=== PATIENT | male | born 1995 | race Caucasian/White ===

== ENCOUNTER 2016-04-21 16:28 | Emergency (ER) | payer BC, OTHER ==
[~2016-04-21] VITALS: Ht 182.9 cm; Wt 97.7 kg
[2016-04-21 16:33] VITALS: TEMP 99
[2016-04-21 17:22] LABS: HEMATOCRIT 48.6 % (36.0-47.0); HEMOGLOBIN 16.7 g/dl (12.5-16.1); MEAN CELL VOLUME 92 fl (80.0-95.0); MEAN CORPUSCULAR HEMOGLOBIN 32 pg (26.0-32.0); MEAN CORPUSCULAR HGB CONC 34 g/dl (33.0-37.0); PLATELET COUNT 276 K/mm3 (130-400); RED BLOOD COUNT 5.31 M/mm3 (4.20-5.60); REDCELL DISTRIBUTION WIDTH-CV 12.4 % (11.5-14.5); WHITE BLOOD COUNT 18.4 K/mm3 (4.8-10.8)
[2016-04-21 17:39] LABS: ADJUSTED CALCIUM 9.7 mg/dL (8.4-10.2); ALBUMIN 5.1 gm/dL (3.5-5.0); BILIRUBIN,TOTAL 1.6 mg/dL (0.0-1.0); CALCIUM 10.6 mg/dL (8.4-10.2); CREATININE, serum 1.27 mg/dL (0.66-1.25)
[2016-04-21 17:44] LABS: ADD PATHOLOGY DIFF REVIEW NO
[2016-04-21 18:06] LABS: BAND 1 % (0-10); EOSINOPHIL 1 % (0-4); NEUTROPHILS 75 % (42.0-75.2); TOTAL CELLS COUNTED 100
[2016-04-21 18:08] LABS: ANISOCYTOSIS 1+; POIKILOCYTOSIS 1+; STOMATOCYTE 1+
[2016-04-21 18:10] LABS: GRANULAR CAST >12 /lpf; HYALINE CAST >12 /lpf; PH 7 (5-8); SQUAMOUS EPITHELIAL None Seen /hpf; URINE APPEARANCE Cloudy; URINE BACTERIA Rare /hpf; URINE BILIRUBIN Negative (NEGATIVE); URINE BLOOD Negative (NEGATIVE); URINE COLOR Amber; URINE GLUCOSE Negative (NEGATIVE); URINE KETONE 2+ (NEGATIVE); URINE WBC None Seen /hpf
[2016-04-21 19:09] VITALS: BP 131/82; PULSE 84
== END 2016-04-21 19:09 | disposition home or self-care (01) ==
LOC: COL.ER 16:28
PROVIDERS: Family Medicine
DX: K29.70 Gastritis, unspecified, without bleeding (principal)
CPT/HCPCS: J2405; J7030; Q9967